=== PATIENT | female | born 1955 | race Caucasian/White ===

== ENCOUNTER 2017-02-12 15:41 | Emergency (ER) | payer MEDICARE ==
[~2017-02-12] VITALS: Ht 160 cm; Wt 77.1 kg
--- NOTE | 2017-02-12 15:56 | NUR ---
ARRIVAL: PT WHEELED TO ED 5, ASSESSMENT CHARTED. PLACED ON MONITOR. EDP NOTIFIED OF PT.
[2017-02-12] MEDS ORDERED: TORADOL IM STA (16:27)
--- NOTE | 2017-02-12 16:32 | ER.PDOC ---
General Chief Complaint: Extremities Stated Complaint: FALL,RIGHT ANKLE INJURY Time seen by MD: 16:31 Source: patient Exam Limitations: no limitations History of Present Illness Initial Comments Right ankle pain. Fell yesterday but did not hit head. Onset: yesterday Severity: moderate Context: fall Associated Symptoms: swelling Modifying Factors: pain on movement Allergies: Coded Allergies: No Known Allergies (Unverified , 02/12/17) Past Medical History Medical History: COPD, diabetes, hypertension Surgical History: knee, shoulder LMP (females 10-50): postmenopause Social History Smoking: cigarettes Alcohol Use: none Drug Use: none Review of Systems Constitutional: no symptoms reported EENTM: no symptoms reported Respiratory: no symptoms reported Cardiovascular: no symptoms reported Gastrointestinal: no symptoms reported Genitourinary: no symptoms reported Musculoskeletal: see HPI All Other Systems: Reviewed and Negative Physical Exam General Appearance: Alert, No Apparent Distress Foot: nml inspection, non-tender Ankle: tenderness (right), swelling (right), ecchymosis (right) Gait: limited by pain Neuro: sensation nml, motor nml Vascular: no vascular compromise Tendons: tendon function nml Leg/Knee/Thigh: uninjured above ankle Skin: warm/dry Head/ENT: nml inspection, pharynx nml Neck/Back: nml inspection, non-tender Resp/CVS: no resp distress Abdomen: non-tender, no organomegaly EKG/XRAY/CT/US XRAY Comments: Right ankle fracture Course Blood Pressure Systolic: 143 Blood Pressure Diastolic: 56 Blood Pressure Mean: 85 Departure Time of Disposition: 16:39 Disposition: 01 HOME, SELF-CARE Impression: Primary Impression: Closed right ankle fracture Condition: Stable Referrals: PCP,UNKNOWN (PCP) PRIMARY CARE PROVIDER Additional Instructions: Ice Tramadol F/U with your Orthopedic or Dr. Ramos in 2-3 days. Call for appointment. Problem Qualifiers Primary Impression: Closed right ankle fracture Encounter type: initial encounter Qualified Code: S82.891A - Other fracture of right lower leg, initial encounter for closed fracture MAHAMED FENG MD Feb 12, 2017 16:32
[2017-02-12] MEDS ORDERED: TORADOL ONE (16:40)
--- NOTE | 2017-02-12 16:58 | DIREP ---
PROCEDURE:XRAY ANKLE MIN 3VWS-RT COMPARISON:None. INDICATIONS:Pain from falling FINDINGS: BONES:Oblique, essentially nondisplaced fracture of the distal right fibula. The fracture is best seen on the lateral view. Soft tissue swelling adjacent to the lateral malleolus. Small calcaneal spur. There is a well-corticated bony density at the tip of the medial and the lateral malleolus, question ord injuries. He is of a fifth metatarsal is intact. JOINTS:A small joint effusion within the ankle cannot be completely excluded. SOFT TISSUES:Bimalleolar soft tissue swelling. OTHER:No additional findings. CONCLUSION:Oblique fracture of the distal right fibula. Soft tissue swelling noted. No joint widening is seen. Dictated by: Shon Jones MD on 02/12/2017 at 04:55 PM
[2017-02-12 17:45] VITALS: BP 143/56
== END 2017-02-12 17:16 | disposition home or self-care (01) ==
LOC: ER 15:41
DX: S82.891A Other fracture of right lower leg, initial encounter for closed fracture (principal); J44.9 Chronic obstructive pulmonary disease, unspecified; E11.9 Type 2 diabetes mellitus without complications; I10 Essential (primary) hypertension; F17.210 Nicotine dependence, cigarettes, uncomplicated; W19.XXXA Unspecified fall, initial encounter; Y93.89 Activity, other specified; Y92.89 Other specified places as the place of occurrence of the external cause; Y99.8 Other external cause status
CPT/HCPCS: 73610; 96372; 99284; J1885